=== PATIENT | female | born 1950 | race Caucasian/White ===

== ENCOUNTER 2017-11-16 05:36 | Day surgery (SDC) | payer MEDICARE, OTHER, SELFPAY ==
[2017-11-16 06:03] VITALS: BP 153/76; PULSE 66; RESP 16; TEMP 36.4; O2SAT 99; BMI 20.7
[2017-11-16] MEDS: Cefazolin 1 GM/50 ML BAG IV (07:00)
[2017-11-16] MEDS: Bupivacaine 0.25% 30 ML Vial (07:15)
--- NOTE | 2017-11-16 07:22 | PCM.OPRPT ---
Report of Operation Date of Procedure: 11/16/17 Pre-Operative Diagnosis: Right ring trigger finger Post-Operative Diagnosis: Right ring trigger finger Surgery/Procedure Performed:: Open release A1 vania, Right ring trigger finger Description of Surgical Findings:: Complete release A1 vania professional nurse: None Type of Anesthesia:: Block,Julian Anesthesiologist: Erwin Julio Special Medications: Ancef Estimated Blood Loss (mL): 1 Fluids Replaced: 400 Description of Procedure: On the day of the procedure patient's r upper extremity was marked in the preoperative area. Patient was brought back to the operating room where placed in the supine position with the r hand on the armboard. A Julian block was administered by anesthesia, tourniquet was placed up at that time. r Hand was prepped in a sterile fashion while the surgeon scrubbed. Upon reentering the room the r upper extremity was draped in a standard orthopedic fashion. Incision was marked out over the ring digit. Timeout was called and it was agreed upon the side and site, the procedure to be performed, antibiotic given and patient's identity. Incision was taken at the skin. Scissors were used to bluntly dissect until the A1 vania was identified. A1 vania was incised in a longitudinal fashion and completely released leaving an ulnarly based flap. The ring digit was then taken through range of motion and no triggering was noted. Patient was awakened from the light sedation by anesthesia and the finger was actively taken through range of motion multiple times with no triggering. Wound was copiously irrigated out with normal saline. Incision was closed with 3-0 nylon. 5 cc of local anesthetic was placed. Xeroform dressing, sterile dressing, compressive dressing were placed tourniquet was let down. Patient was awakened by anesthesia and transferred to PACU for recovery. Postoperative plan: Patient can remove her dressing in 7 days. She'll follow up in 2 weeks for suture removal. She can begin range of motion as tolerated. - Complications none - Admit VTE Documentation VTE Present on Admission: No VTE Mechan Device Prophylaxis: SCD's VTE Pharm Prophylaxis ordered?: No Reason prophylaxis not ordered:: Treatment Not Indicated
[2017-11-16 07:31] VITALS: BP 153/76; BP 163/79; PULSE 68; RESP 14; TEMP 37; O2SAT 95
[2017-11-16 07:35] VITALS: BP 153/76; BP 159/83; PULSE 64; RESP 14; O2SAT 94
[2017-11-16 07:40] VITALS: BP 153/76; BP 156/87; PULSE 61; RESP 14; O2SAT 95
[2017-11-16 07:45] VITALS: BP 153/76; BP 153/86; PULSE 58; RESP 16; TEMP 36.7; O2SAT 95
[2017-11-16 08:18] VITALS: BP 153/76
== END 2017-11-16 08:33 | disposition home or self-care (01) ==
LOC: SDC 05:37 → AC 05:38
PROVIDERS: Family Provider Family Medicine; PCP Family Medicine; Visit Provider Specialist
PROC: (CPT 26055; principal; 2017-11-16 07:05)
DX: M65.341 Trigger finger, right ring finger (principal); F17.210 Nicotine dependence, cigarettes, uncomplicated
CPT/HCPCS: 26055; J7120

== ENCOUNTER → 2017-12-15 08:44 | Outpatient (CLI) | payer MEDICARE, OTHER, SELFPAY ==
[2017-12-15 10:09] LABS: Absolute Neutrophil Count 5.2 X10^3/uL (2.0-7.7); Basophil# 0.04 X10^3/uL; Basophil% 0.5 % (0-1); Eosinophil# 0.21 X10^3/uL; Eosinophils% 2.5 % (0-5); Hematocrit 45.5 % (37-47); Hemoglobin 14.7 g/dl (12.0-15.0); Lymphocyte % 28.7 % (19-41); Mean Corp Hgb Conc 32.3 g/gl (32-36); Mean Corpuscular Hgb 29.1 pg (27.0-32.0); Mean Corpuscular Volume 90.1 fL (81-99); Mean Platelet Vol. 10.6 fl (6.2-12.0); Monocyte# 0.56 X10^3/uL; Monocyte% 6.7 % (0-10); Neutrophil # 5.15 X10^3/uL (2.7-7.7); Neutrophil % 61.5 % (47-70); Platelet Count 247 K/mm3 (150-450); RBC Distribution Width CV 12.6 % (11.6-14.6); RBC Distribution Width SD 41.2 fl (35.1-43.9); Red Blood Count 5.05 M/mm3 (4.2-5.4); White Blood Count 8.4 K/mm3 (4.4-11.0)
[2017-12-15 10:15] LABS: POSITIVE COUNT NO; POSITIVE DIFFERENTIAL NO; POSITIVE MORPHOLOGY NO
[2017-12-15 10:53] LABS: Ferritin 61 ng/mL (8-252); Free T3 2.8 pg/mL (2.18-3.98); Iron 104 ug/dL (50-170); Iron Binding Capacity,Total 310 ug/dL (250-450); PERCENT IRON SATURATION 33.5 % (15.0-55.0); T4 Free Direct 1.22 ng/dL (0.76-1.46); T4 Total, Thyroxin 13.9 ug/dL (4.8-13.9); Thyroid Stim Hormone (TSH) 2.04 uIU/mL (0.358-3.74)
[2017-12-16 08:32] LABS: T3 Total - Triiodothyronine 1.08 ng/mL (0.6-1.81); Vitamin B12 306 pg/mL (211-911); Vitamin D,25 Hydroxy 30.9 ng/mL (29.95-100.01)
[2017-12-19 20:13] LABS: DHEA Sulfate 78.6 ug/dL (20.4-186.6); Testosterone, % Free 2.11 % (0.50-2.80); Testosterone, Free < 0.06 ng/dL (0.10-0.85); Testosterone, Total < 3 ng/dL (3-41)
[2017-12-20 13:12] LABS: Zinc, Plasma or Serum 75 ug/dL (56-134)
[2017-12-21 11:09] LABS: Anti-Nuclear Antibody Test Negative (.)
== END ==
PROVIDERS: Family Provider Family Medicine; PCP Family Medicine; Visit Provider Dermatology
DX: L65.0 Telogen effluvium (principal)
CPT/HCPCS: 36415; 82306; 82607; 82627; 82652; 82728; 82746; 83540; 83550; 84402; 84403; 84436; 84439; 84443; 84480; 84481; 84630; 85025; 86038; 82626

== ENCOUNTER → 2018-05-23 14:59 | Outpatient (CLI) | payer MEDICARE, OTHER, SELFPAY ==
[2018-05-25 08:52] LABS: Thyroid Peroxidase AB 12 IU/mL (0-34)
== END ==
PROVIDERS: Family Provider Family Medicine; PCP Family Medicine; Referring Provider Internal Medicine Endocrinology, Diabetes & Metabolism; Visit Provider Internal Medicine Endocrinology, Diabetes & Metabolism
DX: Z83.49 Family history of other endocrine, nutritional and metabolic diseases (principal)
CPT/HCPCS: 36415; 86376

== ENCOUNTER → 2020-06-18 | Outpatient (CLI) | payer MEDICARE, OTHER, SELFPAY ==
[2018-12-01 16:26] VITALS: BMI 20.7
== END | disposition home or self-care (01) ==
LOC: LABSPEC 14:32
PROVIDERS: PCP Family Medicine; Referring Provider Family Medicine; Visit Provider Family Medicine
DX: R35.0 Frequency of micturition (principal)
CPT/HCPCS: 87077; 87086; 87088; 87186

== ENCOUNTER 2021-06-09 11:58 | Outpatient (CLI) | payer MEDICARE, OTHER, SELFPAY ==
[2021-06-09 12:04] LABS: Bacteria 0 SEEN /hpf (None Seen); Mucous, Urine 0 SEEN /hpf (<or=2+); Red Blood Cells-Urine 0 SEEN /hpf (0-5); Squamous Epithelial Cells - UA 0 SEEN /hpf (5-10); White Blood Cells 0 SEEN /hpf (0-5)
[2021-06-09 15:40] LABS: Color, Urine Straw (Yellow); Glucose, Dipstick Normal (Normal); Ketone-Dipstick Negative (Negative); Leukocyte Esterase-Dipstick Negative /ul (Negative); Nitrite-Dipstick Negative (Negative); Occult Blood-Urine Negative /ul (Negative); Protein-Dipstick Negative (Negative); Specific Gravity, Urine 1.005 (1.002-1.030); Urine Bilirubin Dipstick Negative (Negative); Urine Clarity Clear (Clear); Urine Urobilinogen Normal (Normal)
== END 2021-06-09 23:59 | disposition home or self-care (01) ==
LOC: MTLAB 11:59
PROVIDERS: PCP Family Medicine; Referring Provider Family Medicine; Visit Provider Family Medicine
DX: R35.0 Frequency of micturition (principal)
CPT/HCPCS: 81001; 87086; 87088

== ENCOUNTER 2023-02-17 08:27 | Day surgery (SDC) | payer MEDICARE, OTHER, SELFPAY ==
[2023-02-17] MEDS: Lactated Ringers 1,000 ML 15 ML IV (08:49)
[2023-02-17 08:52] VITALS: BP 167/87; PULSE 80; RESP 18; TEMP 36.6; O2SAT 100; BMI 20.2
--- NOTE | 2023-02-17 09:12 | PCM.HP.STD ---
HPI - General General Date of Admission: 02/17/23 Date of Service: 02/17/23 Chief Complaint: Screening colonoscopy HPI Narrative TEZ FONSECA, is a 72 F who presents today for screening colonoscopy. She had a colonoscopy approximately 2 years ago that was normal she is no sedated medical history. She only takes a multivitamin on a daily basis. She denies any chest pain or shortness of breath. All other 16 review of systems negative except those pertinent positive mentioned HPI. PFSH Medical History (Updated 02/14/23 @ 13:50 by Otoniel Mir) Easy bruising Smoker Wears dentures Wears glasses Home Medications multivitamin 1 tab PO DAILY 11/19/22 [History Last Taken Unknown] Allergy/AdvReac Type Severity Reaction Status Date / Time nitrofurantoin Allergy Shortness Verified 02/14/23 13:40 [From Macrobid] of breath ciprofloxacin AdvReac Uncomfortable Verified 02/14/23 13:40 with taking hydrocodone [From Vicodin] AdvReac Hallucinati Verified 02/14/23 13:40 ons Surgical History (Updated 02/14/23 @ 13:51 by Otoniel Mir) H/O total hysterectomy History of appendectomy Hx of colonoscopy Social History (Updated 11/19/22 @ 12:52 by Winter Abdi) household members: spouse current occupational status: employed current occupation: [employer] Smoking Status: Current every day smoker tobacco type: cigarettes alcohol intake: current alcohol intake frequency: a few times a month Alcohol type: wine ROS Review of Systems ROS Unobtainable: other Constitutional Constitutional: Denies fatigue, fever(s), poor appetite, weight gain or weight loss ENT HEENT: Denies mouth lesions Cardiovascular Cardiovascular: Denies abdominal bloating, abdominal edema or abdominal pain Respiratory/Chest Respiratory/Chest: Denies change in mental status, change in phlegm color, chest congestion or chest tightness Gastrointestinal Gastrointestinal: Denies belching, bloating, change in bowel habits, change in stool character, chewing difficulty, coffee ground emesis, constipation, cramping, diarrhea, dyspepsia, dysphagia, early satiety, excessive flatus, fecal incontinence, heartburn, hematemesis, hematochezia, hemorrhoids, loose stools, melena, nausea, odynophagia, rectal bleeding, tenesmus, vomiting or weight changes Genitourinary Genitourinary: Denies abdominal discomfort, burning urination or itching Musculoskeletal Musculoskeletal: Reports as per HPI; Denies muscle weakness or myalgias Integumentary Integumentary: Denies jaundice Neurologic Neurologic: Denies lack of coordination or weakness Psychiatric Psychiatric: Denies confusion, depression, memory loss, mood swings, paranoia or suicidal ideation Endocrine Endocrinology: Denies systems reviewed and no addt'l complaints, except as documented Hematologic/Lymphatic Hematologic/Lymphatic: Denies anemia, easy bleeding, easy bruising or lymphadenopathy Allergic/Immunologic Allergic/Immunologic: Denies systems reviewed and no addt'l complaints, except as documented Vital Signs Vital Signs Vital Signs: 02/17/23 08:52 02/17/23 08:52 Temperature 97.8 F Temperature Source Temporal Pulse Rate 80 Respiratory Rate 18 Respiratory Pattern Normal Blood Pressure 167/87 H Blood Pressure Mean 113 Blood Pressure Source Monitor Blood Pressure Position Semi-Fowlers Blood Pressure Location Right Arm Pulse Ox 100 Oxygen Delivery Method Room Air Weight Weight: 118 lb Body Mass Index (BMI) 20.2 Physical Exam Const alert General Appearance: cooperative Orientation / Consciousness: oriented to person HEENT hearing grossly normal bilaterally Head and Scalp: normal to inspection Face and Sinus: face symmetric Nose: external nose normal Mouth: oral and palatal mucosa normal Eyes conjunctivae normal General Eye: normal appearance of both eyes Neck full ROM General: normal visual inspection Lymph Lymphatic: no lymphadenopathy noted Chest inspection of chest normal and palpation of chest normal Chest: symmetrical chest wall rise Resp normal respiratory effort Effort and Inspection: able to speak in complete sentences Cardio regular rate GI non-distended Percussion: normal to percussion Rectal Exam: deferred Neuro Speech: speech normal Gait (Neuro): normal gait Assessment & Plan Assessment/Plan (1) Encounter for screening for malignant neoplasm of colon: PLAN: She was explained alternatives ,risk, benefits, including outstanding bleeding, infection, sepsis, perforation, need for emergent surgery and . She will have an ASA of 3 for the procedure.
--- NOTE | 2023-02-17 09:30 | COLBX_PTH ---
PATIENT: JENNY FONSECA LOC: EN U#:[id number] AGE/SX: 72/F ROOM: RE02/17/[address]: Dr. Remi Arias DO : 1950 BED: DIS: 02/17/2023 SPEC #: [id number] RECD: 02/17/23 11:56 STATUS: DARELL HONORIO #: [id number] XAVIER: 02/17/23 09:[address]: Remi Arias DEPT: SURGICAL PATHOLOGY RECD BY: Litzy Yu ENTERED: 02/17/23 11:56 SP TYPE: COLON BX WHITNEY DR: Dr. Jenny Oleary MD Tissues: A - COLON BIOPSY B - Sigmoid colon biopsy Procedures: Surgery Specimen Level IV HEADER OPERATION: Colonoscopy - open access, biopsy and polypectomy PRE-OP DIAGNOSIS: Screening TISSUE SUBMITTED: A - Splenic flexure biopsy, B - Sigmoid polyp MICROSCOPIC DIAGNOSIS A. Colonic polyp at splenic flexure, biopsy: Tubular adenoma. B. Sigmoid colon polyp, biopsy: Tubular adenoma. AM:eulalia 02/18/2023 MICROSCOPIC DESCRIPTION Slides are reviewed. GROSS DESCRIPTION A - Received in fixative is one container labeled with the patient's name and designated splenic flexure. The specimen consists of two irregular fragments of light arteaga soft tissue that in aggregate measure 0.7 x 0.5 x 0.1 cm. The specimen is totally submitted in one cassette. B - Received in fixative is one container labeled with the patient's name and designated sigmoid polyp. The specimen consists of two irregular fragments of light arteaga soft tissue that in aggregate measure 0.3 x 0.3 x 0.1 cm. The specimen is totally submitted in one cassette. / AM:eulalia 02/17/2023 TC:5 [facility]: [id number] x2
[2023-02-17 10:07] VITALS: BP 100/68; BP 167/87; PULSE 77; RESP 18; TEMP 36.4; O2SAT 98
[2023-02-17 10:10] VITALS: BP 167/87; BP 99/68; PULSE 77; RESP 16; O2SAT 97
--- NOTE | 2023-02-17 10:10 | OP.COLON_ITS ---
Patient Name: Jenny Godwin Procedure Date: 02/17/2023 9:36 AM Date of : 1950 Age: 72 Procedure: Colonoscopy Indications: Screening for colorectal malignant neoplasm Providers: Remi Arias DO Medicines: Monitored Anesthesia Care Patient Profile: This is a 72 year old female. Refer to note in patient chart for documentation of history and physical. Last Colonoscopy: more than 10 years ago. Complications: No immediate complications. Procedure: Pre-Anesthesia Assessment: - Prior to the procedure, a History and Physical was performed, and patient medications and allergies were reviewed. The risks and benefits of the procedure and the sedation options and risks were discussed with the patient. All questions were answered and informed consent was obtained. Patient identification and proposed procedure were verified by the physician. Mental Status Examination: alert and oriented. Prophylactic Antibiotics: The patient does not require prophylactic antibiotics. Prior Anticoagulants: The patient has taken no anticoagulant or antiplatelet agents. After reviewing the risks and benefits, the patient was deemed in satisfactory condition to undergo the procedure. The anesthesia plan was to use monitored anesthesia care (MAC). Immediately prior to administration of medications, the patient was re-assessed for adequacy to receive sedatives. The heart rate, respiratory rate, oxygen saturations, blood pressure, adequacy of pulmonary ventilation, and response to care were monitored throughout the procedure. The physical status of the patient was re-assessed after the procedure. After I obtained informed consent, the scope was passed under direct vision. Throughout the procedure, the patient's blood pressure, pulse, and oxygen saturations were monitored continuously. The Colonoscope was introduced through the anus and advanced to the cecum, identified by appendiceal orifice and ileocecal valve. The colonoscopy was performed without difficulty. The patient tolerated the procedure well. The quality of the bowel preparation was adequate. The terminal ileum, ileocecal valve, appendiceal orifice, and rectum were photographed. Scope In: 9:47:09 AM Scope Withdrawal Time 0 hours 11 minutes 10 seconds Scope Out: 10:04:14 AM Total Procedure Duration Time 0 hours 17 minutes 5 seconds Findings: The perianal and digital rectal examinations were normal. A 5 mm polyp was found in the splenic flexure. The polyp was sessile. The polyp was removed with a jumbo cold forceps. Resection and retrieval were complete. Verification of patient identification for the specimen was done. Estimated blood loss was minimal. A 9 mm polyp was found in the sigmoid colon. The polyp was sessile. The polyp was removed with a hot snare. Resection and retrieval were complete. Verification of patient identification for the specimen was done. Estimated blood loss was minimal. Impression: - One 5 mm polyp at the splenic flexure, removed with a jumbo cold forceps. Resected and retrieved. - One 9 mm polyp in the sigmoid colon, removed with a hot snare. Resected and retrieved. Recommendation: - Repeat colonoscopy in 5 years for surveillance. - Continue present medications. Procedure Code(s): --- Professional --- 65148, Colonoscopy, flexible; with removal of tumor(s), polyp(s), or other lesion(s) by snare technique 10687, 59, Colonoscopy, flexible; with biopsy, single or multiple CPT copyright 2021 [employer]. All rights reserved. The codes documented in this report are preliminary and upon college recruiter review may be revised to meet current compliance requirements. Remi Arias DO 02/17/2023 10:09:49 AM This report has been signed electronically. Number of Addenda: 0 Note Initiated On: 02/17/2023 9:36 AM
--- NOTE | 2023-02-17 10:10 | OP.CCLET_ITS ---
02/17/2023 Jenny Oleary [address] [place] [address] Re : Colonoscopy procedure for Jenny Godwin Dear Dr. Oleary This procedure was performed on February. My impressions and recommendations are as follows: Impressions : - One 5 mm polyp at the splenic flexure, removed with a jumbo cold forceps. Resected and retrieved. - One 9 mm polyp in the sigmoid colon, removed with a hot snare. Resected and retrieved. Recommendations : - Repeat colonoscopy in 5 years for surveillance. - Continue present medications. My findings are described in the full procedure note, which is enclosed. If I can be of further assistance, please feel free to contact me at . Sincerely, Remi Arias, 02/17/2023 10:09:49 AM This report has been signed electronically.
[2023-02-17 10:15] VITALS: BP 108/67; BP 167/87; PULSE 75; RESP 16; O2SAT 97
[2023-02-17 10:20] VITALS: BP 112/65; BP 167/87; PULSE 72; RESP 18; O2SAT 98
[2023-02-17 10:25] VITALS: BP 119/73; BP 167/87; PULSE 79; RESP 16; TEMP 36.3; O2SAT 98
== END 2023-02-17 10:56 | disposition home or self-care (01) ==
LOC: EN 08:30 → AC 08:31
PROVIDERS: PCP Family Medicine; Referring Provider Family Medicine; Visit Provider Internal Medicine Gastroenterology
PROC: 0DJD8ZZ Inspection of Lower Intestinal Tract, Via Natural or Artificial Opening Endoscopic (ICD-10-PCS; CPT 45378; principal; 2023-02-17 09:25)
DX: Z12.11 Encounter for screening for malignant neoplasm of colon (principal); F17.210 Nicotine dependence, cigarettes, uncomplicated; D12.3 Benign neoplasm of transverse colon; D12.5 Benign neoplasm of sigmoid colon
CPT/HCPCS: 45380; 45385; 88305; J7120; J2405

== ENCOUNTER → 2023-07-15 | Outpatient (CLI) | payer MEDICARE, OTHER, SELFPAY ==
[2023-07-15 18:12] LABS: Cholesterol 240 mg/dL (200); High Density Lipoprotein 51 mg/dL; Triglycerides 189 mg/dL; Very Low Density Lipoprotein 38 mg/dL (5-40)
== END | disposition home or self-care (01) ==
LOC: MFPLAB 14:44
PROVIDERS: PCP Family Medicine; Visit Provider Family Medicine
DX: Z13.220 Encounter for screening for lipoid disorders (principal)
CPT/HCPCS: 36415; 80061

== ENCOUNTER → 2023-08-03 | Outpatient (CLI) | payer MEDICARE, OTHER, SELFPAY ==
--- NOTE | 2023-08-03 14:20 | BI_ITS ---
MAMMOGRAPHY - BILATERAL SCREENING REASON FOR EXAM: Female, 72 years old. Routine annual screening examination. PERTINENT HISTORY: Non-contributory. TECHNIQUE: Digital bilateral breast wallace (3D mammographic acquisition) in the CC and MLO projections. 2-D mediolateral oblique (MLO) and craniocaudad (CC) views of both breasts were obtained. CAD: Full Field Digital Mammography with Computer Added Detection was performed. COMPARISON: Comparison is made with prior study dated November 23, 2016. FINDINGS: Breast Composition: There are scattered areas of fibroglandular density. There are no dominant masses or suspicious calcifications. No other significant abnormalities are identified. There has been no significant change since the prior study. BI/SCRN MAMM (CAD)W/WALLACE BILAT IMPRESSION: Stable bilateral screening mammogram. Yearly follow-up mammogram recommended. (A) ASSESSMENT CATEGORY: BIRADS Category 1: Negative. A letter regarding these results will be sent to the patient by the facility within 30 days. Approximately 10% of breast cancers are not detected by mammography. A normal mammogram should not delay biopsy of a clinically suspicious abnormality. [id number] Electronically Signed: Cosme Britt MD at 15:39 EDT ,
--- NOTE | 2023-08-03 14:29 | BD_ITS ---
STUDY: DUAL ENERGY X-RAY ABSORPTIOMETRY / DXA REASON FOR EXAM: Female, 72 years old. V76.12ScreeningBONE DENSITY REASON FOR EXAM TECHNIQUE: Bone Mineral Density (BMD) measurements of lumbar spine and bilateral hips were obtained. COMPARISON: None. FINDINGS: Lumbar Spine (L1-L4): g/cm2 (0.964) / T-score (-0.8) / Z-score (1.5) Findings are suggestive of normal bone density with a low fracture risk. Left Femur Total: g/cm2 (0.705) / T-score (-1.9) / Z-score (-0.3) Left Femoral Neck: g/cm2 (0.632) / T-score (-2.0) / Z-score (0.0) Right Femur Total: g/cm2 (0.722) / T-score (-1.8) / Z-score (-0.2) Right Femoral Neck: g/cm2 (0.626) / T-score (-2.0) / Z-score (-0.1) BD/Dexa Bone Density Study IMPRESSION: The patient is considered osteopenic as outlined below according to World Flo Organization (WHO) criteria with a moderate fracture risk. Reference Information: The T-score is the number of standard deviations above or below the standard which is normal for young adults at their peak bone mineral density. The World Health Organization (WHO) interprets the T-scores as follows: Above -1 Normal bone density Between -1 and -2.5 Osteopenia Equal to / or below -2.5 Osteoporosis As a practical clinical guideline, osteopenia may be graded as follows: Mild -1 through -1.5 Moderate -1.6 through -2.0 Severe -2.1 through -2.4 The Z-score is the number of standard deviations above or below age-matched controls. A Z-score of less than -1.5 would be considered abnormal. References: 1. NIH Osteoporosis and Related Bone Diseases www osteo.org 2. International Society for Clinical Densitometry www iscd.org 3. National Osteoporosis Foundation www nof.org Electronically Signed: Cosme Britt MD at 8:29 EDT ,
== END | disposition home or self-care (01) ==
LOC: OPBD 14:20
PROVIDERS: PCP Family Medicine; Referring Provider Family Medicine; Visit Provider Family Medicine
DX: Z12.31 Encounter for screening mammogram for malignant neoplasm of breast (principal); N95.9 Unspecified menopausal and perimenopausal disorder
CPT/HCPCS: 77063; 77067; 77080

== ENCOUNTER → 2023-08-08 | Outpatient (CLI) | payer MEDICARE, OTHER, SELFPAY ==
--- NOTE | 2023-08-08 14:25 | CT_ITS ---
STUDY: LOW DOSE CT LUNG CANCER SCREENING REASON FOR EXAM: Female, 72 years old. Screening for lung cancer RADIATION DOSAGE (If Supplied By Facility): CTDIvol = ( 2.01 ) mGy, DLP = ( 69.22 ) mGycm TECHNIQUE: No contrast was administered. Low dose technique was utilized (average mAS-38 and kVp 120). 1.25 mm axial source images with a slice interval of 1.25-mm were reconstructed in lung windows. 2.5 mm axial source images with a slice interval of 2.5-mm were reconstructed in lung windows. 5.0 mm axial source images with a slice interval of 5.0-mm were reconstructed in soft tissue windows. COMPARISON: None. NODULES: There is a 7.2 mm calcified granuloma in the anterior aspect of the right lower lobe. Tiny scattered calcified granulomas also seen in the anterior aspect of the right lower lobe. Emphysema: Hyperinflation. Emphysematous changes more prominent in the upper lobes. Linear scarring in the anterior medial aspect of the left upper lobe. Endobronchial lesion: None Aorta: Atherosclerotic plaque formation of the aortic arch. CORONARY ARTERIES: Coronary artery calcification is seen. Heart: Unremarkable Pulmonary artery: Unremarkable Mediastinal nodes: Calcified subcarinal lymph nodes as well as right hilar lymph nodes. Other chest and abdominal findings: CT/Low Dose CT Lung Screening IMPRESSION: Lung-RADS category 2 - Continue annual screening with LDCT in 12 months. IMPORTANT NOTES FOR USE: ACR Lung-RADS Version 1.1 Assessment Categories Release Date: 2018 Category: Coded 0-4 bases on nodule(s) with highest degree of suspicion. Negative screen is defined as categories 1 and 2; a positive screen is defined as categories 3 and 4. Category 3 and 4A nodules that are unchanged on interval CT should be coded as category 2, and individuals returned to screening in 12 months. Category 4X: Category 3 or 4 nodules with additional imaging findings that increase the suspicion of lung cancer, such as spiculation, GGN that doubles in size in 1 year, enlarged lymph notes, etc. Category Modifiers: S (significant finding unrelated to lung cancer) Electronically Signed: Cosme Britt MD at 14:44 EDT ,
== END | disposition home or self-care (01) ==
LOC: CT 14:22
PROVIDERS: PCP Family Medicine; Referring Provider Family Medicine; Visit Provider Family Medicine
DX: Z12.2 Encounter for screening for malignant neoplasm of respiratory organs (principal); F17.210 Nicotine dependence, cigarettes, uncomplicated
CPT/HCPCS: 71271

== ENCOUNTER → 2023-08-27 | Outpatient (CLI) | payer MEDICARE, OTHER, SELFPAY | END | disposition home or self-care (01) | PROVIDERS: PCP Family Medicine; Referring Provider Nurse Practitioner Family; Visit Provider Nurse Practitioner Family | DX: N39.0 Urinary tract infection, site not specified (principal) | CPT/HCPCS: 87086; 87088 ==

== ENCOUNTER → 2023-09-19 | Outpatient (CLI) | payer MEDICARE, OTHER, SELFPAY ==
[2023-09-19 19:21] LABS: AST(SGOT) 23 U/L (15-37); Alanine Aminotransfer ALT/SGPT 26 U/L (13-56); Cholesterol 137 mg/dL (200); High Density Lipoprotein 42 mg/dL; Triglycerides 121 mg/dL; Very Low Density Lipoprotein 24 mg/dL (5-40)
== END | disposition home or self-care (01) ==
LOC: MFPLAB 15:08
PROVIDERS: PCP Family Medicine; Visit Provider Family Medicine
DX: E78.5 Hyperlipidemia, unspecified (principal)
CPT/HCPCS: 36415; 80061; 84450; 84460

== ENCOUNTER → 2024-01-12 | Outpatient (CLI) | payer MEDICARE, OTHER, SELFPAY | END | disposition home or self-care (01) | PROVIDERS: PCP Family Medicine; Referring Provider Physician Assistant Surgical; Visit Provider Physician Assistant Surgical | DX: N39.0 Urinary tract infection, site not specified (principal) | CPT/HCPCS: 87086; 87088 ==

== ENCOUNTER → 2024-05-14 | Outpatient (CLI) | payer MEDICARE, OTHER, SELFPAY ==
--- NOTE | 2024-05-14 10:21 | RAD_ITS ---
PROCEDURE: CHEST PA AND LATERAL REASON FOR EXAM: Cough. TECHNIQUE: Frontal and lateral views of the chest. COMPARISON: None. RAD/Chest PA and Lateral IMPRESSION: A small calcified nodule of the right mid lung is noted. Lungs are moderately severely hyperinflated. No acute pneumonic process is otherwise seen. No pleural effusion or pneumothorax is noted. The cardiomediastinal silhouette is within the normal range. [id number] thoracic spine degenerative changes are noted. Reading Location: [id number]
== END | disposition home or self-care (01) ==
LOC: MTRAD 10:21
PROVIDERS: PCP Family Medicine; Referring Provider Physician Assistant; Visit Provider Physician Assistant
DX: R05.9 Cough, unspecified (principal)
CPT/HCPCS: 71046

== ENCOUNTER 2024-07-20 08:30 | Outpatient (RCR) | payer MEDICARE, OTHER, SELFPAY ==
--- NOTE | 2024-07-03 08:37 | HP.OTEVAL ---
Patient's Visit Information Visit Information Visit Information: TEZ FONSECA is a 73 year old F, referred to Occupational Therapy by Les Grimm PA-C, with a diagnosis of Left CMC OA, left thumb pain. Date of Evaluation: 06/29/24 Occupational Therapist: ANDRES Lopez/Orestes, CHT Subjective Subjective: This 73 year old female was seen for OT eval with dx of unilateral primary osteoarthritis. pt states she has noticed pain in left thumb the past 4-6 weeks. pt states pian comes and goes - hum or sharp pain or dull ach pt states the pain varies. pt states she is right handed pt works for the [employer] on the [employer] crew. pt states while working can get pain. Pain left thumb: Current Pain Intensity: 4 Pain Intensity Range: 3 ROM Wrist: right 65/55 left 70/55 CMC: right 10 left 15 MP: right 40 left 45 IP: right 80 left 80 Palmar Abduction: right 40* left 40* Strength Splicing Supervisor: right 55# left 40# Lateral Pinch: right 12# left 12# Tripod Pinch: right 10# left 12# Sensation Thumb: R/L 2.83 interpretation normal sensation Index: R/L 2.83 interpretation normal sensation Middle: R/L 2.83 interpretation normal sensation Ring: R/L 2.83 interpretation normal sensation Little: R/L 2.83 interpretation normal sensation Quick DASH-Disab of Arm,Shoulder& Hand Quick DASH Score: 43.3325 Goals Goal:: 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 with ADLs by d.c Goal:: pt will report pain no greater than 2/10 with use of bilateral hands and ADLS by d.c Goal:: pt will demo understanding of joint protection gloria. by d/c to protect lig/tendon structures and decrease stress on joint by d/c pt will demo understanding of using adaptive eq. to decrease stress on joints for daily occupations by d/c Goal:: pt will demo understanding of using supportive bracing 80% of the time with heavy work tasks to decrease stress on joint structure by 3rd visit. Rehabilitation General Assessment: pt arrives with symptoms and dx of left CMC arthritis. Pt is limited with use of left hand with ADLs and work tasks that limits her IND. pt would benefit from skilled OT services 1-2x wee for 2-4 weeks to ed. pt on supportive bracing- joint protection gloria. and modalities to decrease pts pain. Today therapist ed. pt on joint protection gloria. and bracing. pt demo understanding and agrees to POC. Rehabilitation Potential: Good Anticipated Interventions Anticipated Interventions: A/AAROM/PROM, Strengthening, Triggerpoint Release, Orthoses, Joint Protection/Energy Conservation, Ergonomic Education, ADL Training, Education re assistive Equipment, Education re Diagnosis and Home Program Visit Plan Frequency: 1-2x /Week Duration: 4 Weeks TEXT: Thank you for the opportunity to evaluate your patient. For Medicare and Medicare HMO plans, please review the plan of care and approve it. It will need to be FAXED BACK to us at [phone] for Medicare purposes. Please let me know if there are questions or concerns regarding this plan of care. Physician Signature: Date:
--- NOTE | 2024-10-31 15:02 | HP.OT.NRP ---
Patient Information Patient Information: TEZ FONSECA was seen in my office for initial evaluation on 06/29/24. 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 Pertinent comments regarding their Occupational therapy will appear below: no further apts have been scheduled and due to time lapse in services pt is d/c. At this point I will be discontinuing this patient from occupational therapy. I would be happy to see this patient again in the future if found appropriate by the physician. Thank you! Tram Duron, OTR/L, CHT
== END 2024-07-20 19:00 | disposition home or self-care (01) ==
LOC: OT 08:30
PROVIDERS: PCP Family Medicine; Referring Provider Physician Assistant Surgical; Visit Provider Physician Assistant Surgical
DX: M18.12 Unilateral primary osteoarthritis of first carpometacarpal joint, left hand (principal); M79.642 Pain in left hand
CPT/HCPCS: 97035; 97140; 97166; 97530